=== PATIENT | male | born 1970 | race Caucasian/White ===

== ENCOUNTER 2024-12-27 09:03 | Outpatient (CLI) | payer OTHER, SELFPAY ==
--- NOTE | ~2024-12-27 | MR_ITS ---
MRI of the right knee Clinical history: Chondromalacia Technique: Coronal proton density and proton density-weighted images, sagittal proton-density and T2 fat-sat images, and axial proton-density fat-saturated images were acquired. Findings: Anterior and posterior cruciate ligaments are intact. Medial collateral ligament and the la teral collateral ligament complex are intact. Popliteus tendon is intact. Suspected very subtle oblique tear of the posterior horn of the medial meniscus. No lateral meniscal tear seen. Articular cartilage is well preserved throughout the knee. Bone marrow signals are unremarkable. Extensor mechanism is intact. No joint effusion. Minimal Casillas's cyst. Impression: Probable subtle oblique tear of the posterior horn medial meniscus. Minimal Casillas's cyst. Reviewed, dictated and finalized at location . Impression: Probable subtle oblique tear of the posterior horn medial meniscus. Minimal Casillas's cyst.
== END 2024-12-27 09:04 | disposition home or self-care (01) ==
LOC: GOSHIMG 09:04
PROVIDERS: PCP Orthopaedic Surgery; Visit Provider Orthopaedic Surgery
DX: M94.261 Chondromalacia, right knee (principal)
CPT/HCPCS: 73721